=== PATIENT | female | born 1950 | race Caucasian/White ===

== ENCOUNTER → 2016-06-03 | Outpatient (CLI) | payer OTHER | LOC: BMCIMAGING 08:01 | DX: Z12.31 Encounter for screening mammogram for malignant neoplasm of breast (principal) | CPT/HCPCS: G0202 ==

== ENCOUNTER → 2017-06-07 | Outpatient (CLI) | payer OTHER | LOC: BMCIMAGING 15:19 | PROVIDERS: ATTEND Family Medicine | DX: Z12.31 Encounter for screening mammogram for malignant neoplasm of breast (principal) ==

== ENCOUNTER → 2017-06-21 | Outpatient (CLI) | payer OTHER | LOC: BMCIMAGING 10:03 | PROVIDERS: ATTEND Family Medicine | DX: R92.8 Other abnormal and inconclusive findings on diagnostic imaging of breast (principal) ==

== ENCOUNTER → 2017-07-02 | Outpatient (CLI) | payer OTHER ==
[~2017-07-02] MED LIST: BUPIVACAINE 0.5% 10 ML SDV ONE; LIDOCAINE 1% 300 MG/30 ML SDV ONE; THROMBIN (BOVINE) 5,000 UNIT VIAL TP ONE
== END | disposition home or self-care (01) ==
LOC: FIMAGING 08:41
PROVIDERS: ATTEND Family Medicine
PROC: 0HBT3ZX Excision of Right Breast, Percutaneous Approach, Diagnostic (ICD-10-PCS; principal; 2017-07-02)
DX: C50.411 Malignant neoplasm of upper-outer quadrant of right female breast (principal); Z17.0 Estrogen receptor positive status [ER+]

== ENCOUNTER 2017-08-02 06:32 | Day surgery (SDC) | payer OTHER ==
[2017-08-02] MEDS ORDERED: ceFAZolin 2 GM/SWFI 2 GM/20 ML SYR IVP ONE (07:07)
[2017-08-02] MEDS ORDERED: LIDOCAINE 1% 2 ML INJ ID PRN (07:08)
[2017-08-02] MEDS ORDERED: LR 1,000 ML IV ONE (07:08)
--- NOTE | 2017-08-02 07:12 | PDHPUP ---
History & Physical Update H&P update statement: This history and physical update is based on an assessment of the patient which was completed after admission or registration (within 24 hours), but prior to the surgery/procedure. H&P update: H&P reviewed & patient examined, no change in patient's condition since H&P completed
[2017-08-02] MEDS ORDERED: LIDOCAINE 1% 300 MG/30 ML SDV ONE ×2 (07:39→11:23)
[2017-08-02] MEDS ORDERED: BUPIVACAINE 0.5% 30 ML SDV ONE (11:23)
[2017-08-02] MEDS ORDERED: THROMBIN (BOVINE) 5,000 UNIT VIAL TP ONE (11:23)
[2017-08-02] MEDS ORDERED: METHYLENE BLUE 0.5% 50 MG/10 ML AMP ONE (11:24)
[2017-08-02] MEDS ORDERED: HYDROGEN PEROXIDE 473 ML BOTTLE TP ONE (11:24)
[2017-08-02] MEDS ORDERED: NA BICARBONATE 50 MEQ/50 ML VIAL ONE (11:24)
[2017-08-02] MEDS ORDERED: ceFAZolin 2 GM/SWFI 20 ML SYR IVP ONE (12:54)
--- NOTE | 2017-08-02 12:57 | PDANEPAE ---
ANE History of Present Illness 67 yo female with R breast cancer now for lumpectomy and SNL biopsy. ANE Past Medical History - Cardiovascular History Hx Hypertension: No Hx Arrhythmias: Yes Hx Chest Pain: No Hx Coronary Artery / Peripheral Vascular Disease: No Hx CHF / Valvular Disease: No Hx Palpitations: No - Pulmonary History Hx COPD: No Hx Asthma/Reactive Airway Disease: No Hx Recent Upper Respiratory Infection: No Hx Oxygen in Use at Home: No Hx Sleep Apnea: Yes Pulmonary History Comment: does not use CPAP - tries to sleep on her side, and tapes her mouth shut at night. - Neurologic History Hx Cerebrovascular Accident: No Hx Seizures: No Hx Dementia: No - Endocrine History Hx Diabetes: No Hypothyroid: No Obesity: no - Renal History Hx Renal Disorders: No - Liver History Hx Hepatic Disorders: No - Neurological & Psychiatric Hx Hx Neurological and Psychiatric Disorders: Yes Neurological / Psychiatric History Comment: trigeminal neuralgia - Cancer History Hx Cancer: No - Congenital Disorder History Hx Congenital Disorders: No - GI History Hx Gastrointestinal Disorders: No - Other Health History Other Health History: past heart arrythmia, neuropathy, sleep apnea - Surgical History Prior Surgeries: titanium plate in left side of face, shoulder surgery, right eye removal, left ankle fusion, right ankle surgery ANE Review of Systems Review of systems is: negative Review of Systems: - Exercise capacity METS (RN): 6 METS - Systems EENMT: Reports: other (L trigeminal neuralgia - chronic) ANE Patient History - Allergies Allergies/Adverse Reactions: No Known Allergies Allergy (Verified 07/28/17 18:03) - Home Medications Home Medications: Estring 07/28/17 [Last Taken Unknown] Gabapentin 07/28/17 [Last Taken 1 Day Ago ~08/01/17] Progesterone 07/28/17 [Last Taken Unknown] - NPO status NPO Status: no food or drink >8 hours NPO Since - Liquids (Date): 08/01/17 NPO Since - Liquids (Time): 19:00 NPO Since - Solids (Date): 08/01/17 NPO Since - Solids (Time): 18:30 - Anes Hx Anes Hx: post operative nausea and vomiting - Smoking Hx Smoking Status: Never smoked Marijuana use: No - Alcohol Use Alcohol Use: Rarely - Family Anes Hx Family Anes Hx: neg - N/A ANE Labs/Vital Signs - Vital Signs Blood Pressure: 112/67 Heart Rate: 69 Respiratory Rate: 18 O2 Sat (%): 94 Height: 167.64 cm Weight: 58.239 kg ANE Physical Exam - Airway Neck exam: FROM Mallampati Score: Class 1 Mouth exam: normal dental/mouth exam - Pulmonary Pulmonary: clear to auscultation - Cardiovascular Cardiovascular: regular rate and rhythym - ASA Status ASA Status: III ANE Anesthesia Plan Anesthesia Plan: GA w LMA
[2017-08-02] MEDS ORDERED: LIDOCAINE 2% 5 ML SDV ONE (13:01)
[2017-08-02] MEDS ORDERED: DEXAMETHASONE 4 MG/ML VIAL ONE (13:01)
[2017-08-02] MEDS ORDERED: fentaNYL 100 MCG/2 ML INJ ONE ×2 (13:02→14:35)
[2017-08-02] MEDS ORDERED: PROPOFOL/EMULSION 500 MG/50 ML BOTTLE IV ONE (13:02)
[2017-08-02] MEDS ORDERED: ceFAZolin 1 GM VIAL ONE ×2 (13:24)
[2017-08-02] MEDS ORDERED: THROMBIN (BOVINE) 20,000 UNIT SPRAY TP ONE (13:40)
[2017-08-02] MEDS ORDERED: ONDANSETRON 4 MG/2 ML VIAL ONE (13:56)
[2017-08-02] MEDS ORDERED: NALOXONE HCL 0.4 MG/ML INJ IVP PRN ×2 (13:57→14:12)
[2017-08-02] MEDS ORDERED: PROMETHAZINE HCL 25 MG/ML INJ IVP PRN (13:57)
[2017-08-02] MEDS ORDERED: fentaNYL 100 MCG/2 ML INJ IVP PRN (13:57)
[2017-08-02] MEDS ORDERED: ALBUTEROL 3 ML DEYVIAL IH PRN (13:57)
[2017-08-02] MEDS ORDERED: LR 500 ML IV PRN (13:57)
[2017-08-02] MEDS ORDERED: ACETAMINOPHEN 500 MG TAB PO PRN (13:57)
[2017-08-02] MEDS ORDERED: oxyCODONE IR 5 MG TAB PO PRN (13:57)
--- NOTE | 2017-08-02 14:07 | POSTOPPROG ---
Post Op Note Date of Operation: 08/02/17 Surgeon: Stef Partida Tool Grinder: Rylee Bro Anesthesiologist: Nikia Merritt Anesthesia: GET(General Endotracheal) Pre-op Diagnosis: breast cancer Post-op Diagnosis: same Indication: 67 Y F c two adjacent foci of breast cancer. Procedure: R quadrantectomy c SN LN bx Findings: masses in specimen per rads, LN benign on frozen section Inf/Abcess present in the surg proc area at time of surgery?: No EBL: Minimal Complications: none Specimen(s): R quadrantectomy and R sentinel LN
--- NOTE | 2017-08-02 14:12 | POSTANESTH ---
Post Anesthetic Evaluation Cardiovascular Status: Normal, Stable Respiratory Status: Normal, Stable Level of Consciousness/Mental Status: Can Participate in Eval, Mildly Sleepy, Arousable Pain Control: Adequate, Prn Tx Ordered Nausea/Vomiting Control: Adequate, Prn Tx Ordered Complications Possibly Related to Anesthesia: None Noted
[2017-08-02 17:32] VITALS: BP 108/64
== END 2017-08-02 17:50 | disposition home or self-care (01) ==
LOC: FIMAGING 06:32
PROVIDERS: ATTEND Surgery
PROC: C71M1ZZ Planar Nuclear Medicine Imaging of Trunk Lymphatics using Technetium 99m (Tc-99m) (ICD-10-PCS; principal; 2017-08-02 11:30)
PROC: 0HBT0ZZ Excision of Right Breast, Open Approach (ICD-10-PCS; principal; 2017-08-02 11:30)
PROC: 07B50ZX Excision of Right Axillary Lymphatic, Open Approach, Diagnostic (ICD-10-PCS; principal; 2017-08-02 11:30)
DX: C50.911 Malignant neoplasm of unspecified site of right female breast (principal); D05.11 Intraductal carcinoma in situ of right breast; Z80.3 Family history of malignant neoplasm of breast; Z92.23 Personal history of estrogen therapy
CPT/HCPCS: 19301; 38525; 76098; 78195; A9520; J0690; J1100; J2405; J2704; J3010; Q9968

== ENCOUNTER → 2017-10-04 | Outpatient (CLI) | payer OTHER | LOC: BHFA 13:30 | PROVIDERS: ATTEND Internal Medicine Cardiovascular Disease | DX: I49.3 Ventricular premature depolarization (principal) ==

== ENCOUNTER → 2017-10-11 | Outpatient (CLI) | payer OTHER | LOC: BHFA 13:30 | PROVIDERS: ATTEND Internal Medicine Cardiovascular Disease | DX: R06.02 Shortness of breath (principal); I49.1 Atrial premature depolarization; R00.2 Palpitations ==

== ENCOUNTER → 2017-10-21 | Outpatient (CLI) | payer OTHER | LOC: FIMAGING 10:12 | PROVIDERS: ATTEND Internal Medicine Hematology & Oncology | DX: Z13.820 Encounter for screening for osteoporosis (principal); M85.80 Other specified disorders of bone density and structure, unspecified site; N95.8 Other specified menopausal and perimenopausal disorders; C50.919 Malignant neoplasm of unspecified site of unspecified female breast ==

== ENCOUNTER → 2018-06-08 | Outpatient (CLI) | payer OTHER | LOC: FIMAGING 12:38 | PROVIDERS: ATTEND Internal Medicine Hematology & Oncology | DX: Z12.31 Encounter for screening mammogram for malignant neoplasm of breast (principal); Z85.3 Personal history of malignant neoplasm of breast ==

== ENCOUNTER → 2018-06-24 | Outpatient (CLI) | payer OTHER | LOC: FIMAGING 10:53 | PROVIDERS: ATTEND Internal Medicine Hematology & Oncology | DX: N63.13 Unspecified lump in the right breast, lower outer quadrant (principal) ==

== ENCOUNTER → 2018-07-25 | Outpatient (CLI) | payer OTHER ==
[~2018-07-25] MED LIST changes: -BUPIVACAINE 0.5% 10 ML SDV ONE; +BUPIVACAINE 0.5% 30 ML SDV ONE
== END ==
LOC: FIMAGING 07:38
PROVIDERS: ATTEND Internal Medicine Hematology & Oncology
PROC: 0HBT3ZX Excision of Right Breast, Percutaneous Approach, Diagnostic (ICD-10-PCS; principal; 2018-07-25)
DX: N63.10 Unspecified lump in the right breast, unspecified quadrant (principal)